=== PATIENT | male | born 1990 | race Two or more races ===

== ENCOUNTER 2017-09-14 11:57 | Emergency (ER) | payer MEDICAID, OTHER ==
[2017-09-14] MEDS ORDERED: Acetaminophen TAB* 325 MG PO ONE (12:50)
[2017-09-14] MEDS ORDERED: Dexamethasone TAB* 4 MG PO ONE (12:50)
[2017-09-14] MEDS ORDERED: Amoxicillin PO (*) 250 MG CAP PO ONE (13:35)
--- NOTE | 2017-09-14 14:03 | ED ---
Throat Pain/Nasal Congestion - HPI Summary HPI Summary: 27M presents with fever and sore throat for two days. He admits to sinus congestion and ear pressure. He admits to productive cough. He denies any abdominal pain, n/v/d. He has been taking ibuprofen for his fever. He denies any history of strept. He denies any chest pain or SOB. He states has not been able to eat much due to throat pain. no one else is sick. he has no medical conditions. no headache or neck stiffness. - History of Current Complaint Chief Complaint: EDFever Time Seen by Provider: 09/14/17 12:30 - Allergies/Home Medications Allergies/Adverse Reactions: Allergies Allergy/AdvReac Type Severity Reaction Status Date / Time No Known Allergies Allergy Verified 10/23/14 15:14 PMH/Surg Hx/FS Hx/Imm Hx Endocrine/Hematology History: Denies: Hx Anticoagulant Therapy Cardiovascular History: Denies: Hx Hypertension - Immunization History Date of Tetanus Vaccine: UTD Date of Influenza Vaccine: NO Infectious Disease History: No Infectious Disease History: Denies: Traveled Outside the [place] in Last 30 Days - Family History Known Family History: Positive: Hypertension - Social History Alcohol Use: Occasionally Substance Use Type: Reports: None Smoking Status (MU): Heavy Every Day Tobacco Smoker Review of Systems Positive: Fever Positive: Sore Throat, Nasal Discharge Negative: Chest Pain Positive: Cough. Negative: Shortness Of Breath All Other Systems Reviewed And Are Negative: Yes Physical Exam Triage Information Reviewed: Yes Vital Signs On Initial Exam: Initial Vitals Temp Pulse Resp BP Pulse Ox 99.5 F 115 18 144/103 96 09/14/17 11:58 09/14/17 11:58 09/14/17 11:58 09/14/17 11:58 09/14/17 11:58 Vital Signs Reviewed: Yes Appearance: Positive: Well-Appearing Skin: Positive: Warm, Dry Head/Face: Positive: Normal Head/Face Inspection Eyes: Positive: Normal, EOMI, DALTON, Conjunctiva Clear ENT: Positive: Pharyngeal erythema, TMs normal, Tonsillar swelling - +@, Tonsillar exudate, Uvula midline, Other - soft palate symmetric. Negative: Trismus, Muffled voice Neck: Positive: Supple, Nontender, No Lymphadenopathy Respiratory/Lung Sounds: Positive: Clear to Auscultation, Breath Sounds Present Cardiovascular: Positive: Normal, RRR Abdomen Description: Positive: Nontender, Soft Bowel Sounds: Positive: Present Musculoskeletal: Positive: Normal Neurological: Positive: Normal Psychiatric: Positive: Normal - Quynh Coma Scale Coma Scale Total: 15 Diagnostics - Vital Signs Vital Signs Temp Pulse Resp BP Pulse Ox 09/14/17 11:58 99.5 F 115 18 144/103 96 - Laboratory Lab Results: Lab Results 09/14/17 09/14/17 Range/Units 13:05 13:06 Influenza A (Rapid) Negative (Negative) Influenza B (Rapid) Negative (Negative) Group A Strep Rapid Positive H (Negative) Lab Statement: Any lab studies that have been ordered have been reviewed, and results considered in the medical decision making process. EENT Course/Dx - Course Course Of Treatment: 27M presents with fever and sore throat for two days. He admits to sinus congestion and ear pressure. He admits to productive cough. He denies any abdominal pain, n/v/d. He has been taking ibuprofen for his fever. He denies any history of strept. He denies any chest pain or SOB. He states has not been able to eat much due to throat pain. no one else is sick. he has no medical conditions. no headache or neck stiffness. on exam fluid behind ears, sinus congestion, pharynx and tonsils red +2, uvula midline, soft palate symmetric, exudate on tonsils. strep pos. will treat with amoxicillin and decadron. patient understand and agrees with plan. - Differential Diagnoses Differential Diagnoses: Pharyngitis, Tonsilitis, URI/Bronchitis - Diagnoses Provider Diagnoses: Streptococcal sore throat Discharge - Discharge Plan Condition: Good Disposition: HOME Prescriptions: Amoxicillin PO (*) [Amoxicillin 500 MG CAP*] 500 mg PO Q12H #19 cap Dexamethasone TAB* [Decadron TAB*] 4 mg PO DAILY #4 tab Patient Education Materials: Strep Throat (ED) Referrals: No Primary Care Phys,NOPCP [Primary Care Provider] - Additional Instructions: Take antibiotic twice a day for 10 days Take steroid once a day for 5 days Take Tylenol or ibuprofen for pain/fever every 6 hours Can gargle salt water, use cough drops or products such as cloraseptic spray for pain Return to ED if develop difficulty breathing or unable to manage secretions, any new or worsening symptoms
[2017-09-14 14:34] VITALS: BP 139/87
== END 2017-09-14 14:33 | disposition home or self-care (01) ==
LOC: ED 11:57
DX: J02.0 Streptococcal pharyngitis (principal); R50.9 Fever, unspecified; J02.9 Acute pharyngitis, unspecified; R05 Cough; F17.210 Nicotine dependence, cigarettes, uncomplicated
CPT/HCPCS: 87502; 87651; 99282; A9270-GY; J8540